=== PATIENT | female | born 1975 | race Asian ===

== ENCOUNTER 2018-11-14 07:27 | Day surgery (SDC) | payer OTHER ==
[~2018-11-14] VITALS: Ht 152.4 cm; Wt 72.6 kg
[2018-11-14 08:21] LABS: HCG,QUAL RESULT NEGATIVE (NEGATIVE)
[2018-11-14 08:29] LABS: BILIRUBIN,URINE NEGATIVE (NEGATIVE); BLOOD, URINE 3+ (NEGATIVE); CLARITY/URINE SL HAZY (CLEAR); COLOR,URINE YELLOW (YELLOW); GLUCOSE,URINE NEGATIVE (NEGATIVE); KETONES,URINE NEGATIVE (NEGATIVE); LEUKOCYTE ESTERASE ,URINE NEGATIVE (NEGATIVE); NITRITE, URINE NEGATIVE (NEGATIVE); PROTEIN URINE TRACE (NEGATIVE); UROBILINOGEN,URINE 0.2 (0.2-1.0)
[2018-11-14] MEDS ORDERED: CEFAZOLIN SOD 1 GM in D5W 50 ML IV ONE (08:30)
[2018-11-14 08:33] LABS: HEMATOCRIT 33.2 % (36-48); MEAN CORPUSCULAR VOLUME 89 fL (79.0-98.0); RED BLOOD CELL COUNT(AUTO) 3.72 MIL/uL (4.2-6.2); WHITE BLOOD COUNT (AUTO) 5.3 K/uL (4.8-10.8)
[2018-11-14 08:34] LABS: EOSINOPHILS % (AUTO) 2.8 % (0.0-4.0); LYMPHOCYTES % (AUTO) 15.6 % (20.5-51.5); MEAN CORPUSCULAR HEMOGLOBIN 30 pg (27-31); MEAN CORPUSCULAR HGB CONC 33 % (32-36); MONOCYTES % (AUTO) 8.8 % (1.7-9.3); NEUTROPHILS % (AUTO) 71.9 % (40.0-70.0); PLATELET COUNT (AUTO) 317 K/uL (130-430); RED CELL DISTRIBUTION WIDTH 14.3 % (9.0-15.0)
[2018-11-14 08:35] LABS: BASOPHILS % (AUTO) 0.9 % (0.0-2.0); EOSINOPHILS # (AUTO) 0.1 K/uL (0.0-0.4); LYMPHOCYTES # (AUTO) 0.8 K/uL (1.0-5.5); MONOCYTES # (AUTO) 0.5 K/uL (0.0-1.0); NEUTROPHILS # (AUTO) 3.8 K/uL (1.8-7.7)
[2018-11-14 09:26] LABS: BACTERIA,URINE FEW /HPF (None Seen); RBC,URINE 80-100 /HPF (0-3)
[2018-11-14 09:27] LABS: MUCUS,URINE None Seen /LPF (None Seen)
[2018-11-14] MEDS: MORPHINE 4 MG/ML INJ. SYRINGE ONE (11:00)
[2018-11-14] MEDS ORDERED: HYDROmorphone 2 MG/ML VIAL IVP ONE (12:15)
[2018-11-14] MEDS: HYDROmorphone 1 MG INJ. 1 MG/ML AMPUL ONE (12:30)
[2018-11-14 13:16] VITALS: BP_SYST 104
[2018-11-14] MEDS ORDERED: HYDROcodone/ACETAMIN 5-325 MG TAB (NORCO/ VICODIN) PO PRN (14:00)
[2018-11-14] MEDS ORDERED: OXYCODONE/ACETAMINOPHEN 5-325 TABLET PO PRN (14:00)
[2018-11-14] MEDS ORDERED: ONDANSETRON HCL 4 MG/2 ML VIAL IVP PRN (14:00)
== END 2018-11-14 14:15 | disposition home or self-care (01) ==
LOC: SDS 07:27 → SMU 07:27 → SDS 14:15
PROVIDERS: ATTEND Specialist
DX: N80.0 Endometriosis of uterus (principal); N92.0 Excessive and frequent menstruation with regular cycle; D25.9 Leiomyoma of uterus, unspecified; N93.8 Other specified abnormal uterine and vaginal bleeding; I10 Essential (primary) hypertension; E66.3 Overweight; D50.0 Iron deficiency anemia secondary to blood loss (chronic); Z98.890 Other specified postprocedural states; Z79.899 Other long term (current) drug therapy
CPT/HCPCS: 36415; 58558; 81000; 84703; 85025; 87086; 88305; J0690; J1170; J2270; J7060; J7120

== ENCOUNTER 2021-01-14 13:56 | Emergency (ER) | payer OTHER ==
[~2021-01-14] VITALS: Ht 152.4 cm; Wt 75.7 kg
[2021-01-14 14:07] VITALS: BP_SYST 128
--- NOTE | 2021-01-14 14:08 | NUR ---
Patient to ER bed 8 to gown for evaluation. Side rails up.
--- NOTE | 2021-01-14 14:09 | NUR ---
pt arrives from home w/ c/o of left sided chest wall pain 5/10, non-radiating. Pt also reports left arm pit pain 5/10. demo event specialist placed.
--- NOTE | 2021-01-14 14:12 | NUR ---
ekg done and given to
--- NOTE | 2021-01-14 14:15 | NUR ---
ER at bedside examining patient.
[2021-01-14] MEDS ORDERED: IBUP-1971 PO (15:19)
[2021-01-14 15:23] VITALS: BP_SYST 128
--- NOTE | 2021-01-14 15:24 | NUR ---
Patient given written and verbal discharge instructions and verbalizes understanding. ER MD discussed with patient the results and treatment provided. Patient in stable condition. ID arm band removed. Rx of ibuprofen given. Patient educated on pain management and to follow up with PMD. Pain Scale 3/10. Opportunity for questions provided and answered. Medication side effect fact sheet provided.
== END 2021-01-14 15:24 | disposition home or self-care (01) ==
LOC: SED 13:56
DX: M79.602 Pain in left arm (principal); I10 Essential (primary) hypertension
CPT/HCPCS: 93005; 99283